=== PATIENT | male | born 1960 | race Caucasian/White ===

== ENCOUNTER 2016-12-17 09:59 | Day surgery (SDC) | payer BC ==
--- NOTE | ~2016-12-17 | EGD ---
EGD REPORT [facility] [address] [address] NAME: SINCERE YAÑEZ : 56 STATUS : REG [facility]#: [id number] AGE: 56 ADM/REG DATE : 12/17/16 MR#: [id number] REPORT SERV DATE: 12/17/16 DICTATED BY: ULISES BUSTAMANTE DATE: 12/17/16 REPORT STATUS : Draft TRANSCRIBED BY: [employer] DATE: 12/17/16 Endoscopy Center Patient Name: Sincere Yañez. Date of : 1960 Attending MD: ULISES BUSTAMANTE, Procedure Date No Time: 12/17/2016 Procedure: Upper GI endoscopy Indications: Cottrell's low grade dysplasia Referring MD: ISIAH ANG III, MD Medicines: Monitored Anesthesia Care Complications: No immediate complications. Estimated blood loss: None. Procedure: Pre-Anesthesia Assessment: - ASA Grade Assessment: III - A patient with severe systemic disease. After obtaining informed consent, the endoscope was passed under direct vision. Throughout the procedure, the patient's blood pressure, pulse, and oxygen saturations were monitored continuously. The [facility] [id number] was introduced through the mouth, and advanced to the second part of duodenum. The upper GI endoscopy was accomplished without difficulty. The patient tolerated the procedure well. Findings: The esophagus and gastroesophageal junction were examined with white light. Cottrell's esophagus was present, extending from the upper extent of the gastric folds which were at 35 cm from the incisors. [place] were present from 31 to 34 cm. The maximum longitudinal extent of these esophageal mucosal changes was 3 cm in length. Circumferential radiofrequency ablation of Cottrell's esophagus was performed, using the [employer] 360 catheter and balloon-based endoscopic ablation system. With the endoscope in place, the position and extent of the Cottrell's mucosa and the anatomic landmarks were noted. A selfsizing radiofrequency ablation balloon catheter was then selected and passed into the esophagus. The endoscope was introduced in a peko-[id number] manner with the ablation catheter. The balloon ablation catheter was positioned under direct visualization so that the proximal edge of the electrode was slightly above the proximal edge of the Cottrell's mucosa. The balloon was automatically inflated and energy was applied at 10 J/cm2. The balloon electrode was moved 3 cm distally, so that the proximal edge of the electrode was aligned with the distal edge of the ablation zone. The process of balloon inflation and ablation was repeated until the top of the gastric folds was reached. After this there was large portion that did not make contact with the balloon and was untreated.This was treated with channel catheter at 12 J tmies two. The ablation catheter and EGD REPORT [facility] [place] [address] [place]. [address] NAME: SINCERE YAÑEZ : 56 STATUS : REG [facility]#: [id number] AGE: 56 ADM/REG DATE : 12/17/16 MR#: [id number] REPORT SERV DATE: 12/17/16 DICTATED BY: ULISES BUSTAMANTE DATE: 12/17/16 REPORT STATUS : Draft TRANSCRIBED BY: [employer] DATE: 12/17/16 guidewire were removed and the balloon was cleaned. The ablation zone was then cleaned of overlying coagulative debris using irrigation and suction via the endoscope and a cleaning cap. The guidewire was reinserted and then the ablation catheter was reintroduced into the esophagus over the wire. The ablation catheter was positioned under direct visualization so that the proximal edge of the electrode was at the proximal edge of the ablation zone. Reinflation and a second round of ablation was performed with the application of 10 J/cm2 to re-treat the Cottrell's epithelium already treated with the first round of ablation. The ablation catheter and guidewire were then removed. The areas of the esophagus where Cottrell's mucosa had been ablated were then carefully examined with the endoscope. Impression: - Cottrell's esophagus. Treated with radiofrequency ablation. Recommendation: - Return to previous diet. - Continue present medications. - Repeat the upper endoscopy in 3 months for retreatment. Procedure Code(s): --- Professional --- 89396, Esophagogastroduodenoscopy, flexible, transoral; with ablation of tumor(s), polyp(s), or other lesion(s) (includes pre- and post-dilation and guide wire passage, when performed) Diagnosis Code(s): --- Professional --- K22.710, Cottrell's esophagus with low grade dysplasia CPT copyright 2013 [employer]. All rights reserved. The codes documented in this report are preliminary and upon compliance and control analyst review may be revised to meet current compliance requirements. ULISES BUSTAMANTE, 12/17/2016 2:11 PM Number of Addenda: 0 Note Initiated On: 12/17/2016 12:55 PM Scope Withdrawal Time 0 hours 0 minutes 0 seconds [id number] [id number]
[~2016-12-17 09:59] MED LIST: AMARYL2 PO; ASAB PO; COREG3 PO; DSS PO; FESO4 PO; GLUCOPHAGE1000 MG PO; JANUMET1 TA1 PO; JANUVIA100 MG PO; JANUVIA50 PO; L20 PO; LEVEMFLXPN SC; LIPITOR20 PO; LIPITOR40 PO; LOP25 PO; MAGOX4 PO; MAX25 PO; NEUR300 PO; PRAVAC PO; PRIN5 PO; PROTONIX PO; VITAMIN B-121000 MC1 SL; ZANTAC300 MG PO
[2017-03-22] MEDS ORDERED: MIRALAX POWDER1 PKT PO (10:54)
[2017-03-22] MEDS ORDERED: SENTAB PO (10:55)
[2017-04-13] MEDS ORDERED: AMARYL4 PO (09:37)
== END 2016-12-17 23:59 | disposition home or self-care (01) ==
LOC: DMU 09:59
PROVIDERS: Internal Medicine Gastroenterology
PROC: 0D558ZZ Destruction of Esophagus, Via Natural or Artificial Opening Endoscopic (ICD-10-PCS; 2016-12-17)
PROC: 0D548ZZ Destruction of Esophagogastric Junction, Via Natural or Artificial Opening Endoscopic (ICD-10-PCS; principal; 2016-12-17 12:00)
DX: K22.710 Barrett's esophagus with low grade dysplasia (principal); I10 Essential (primary) hypertension; Z87.442 Personal history of urinary calculi; J30.2 Other seasonal allergic rhinitis; K21.9 Gastro-esophageal reflux disease without esophagitis; E11.9 Type 2 diabetes mellitus without complications; G47.00 Insomnia, unspecified; R35.0 Frequency of micturition; Z86.74 Personal history of sudden cardiac arrest; Z91.010 Allergy to peanuts; Z91.018 Allergy to other foods; Z87.891 Personal history of nicotine dependence; Z95.5 Presence of coronary angioplasty implant and graft; Z90.49 Acquired absence of other specified parts of digestive tract; Z79.82 Long term (current) use of aspirin; Z79.4 Long term (current) use of insulin; Z79.899 Other long term (current) drug therapy
CPT/HCPCS: 82962; C1725